=== PATIENT | female | born 1950 | race Caucasian/White ===

== ENCOUNTER → 2017-01-18 | Outpatient (CLI) | payer MEDICARE, OTHER | LOC: HEART 5 09:36 | DX: J44.9 Chronic obstructive pulmonary disease, unspecified (principal) | CPT/HCPCS: 94010 ==

== ENCOUNTER → 2017-02-01 | Outpatient (CLI) | payer MEDICARE, OTHER | LOC: CT 13:30 | DX: F17.210 Nicotine dependence, cigarettes, uncomplicated (principal); J44.9 Chronic obstructive pulmonary disease, unspecified; R91.8 Other nonspecific abnormal finding of lung field | CPT/HCPCS: G0297 ==

== ENCOUNTER 2020-11-13 11:01 | Inpatient (IN) | payer MEDICARE, OTHER ==
[~2020-11-13] VITALS: Ht 149.9 cm; Wt 42.0 kg
[~2020-11-13 11:01] MED LIST: ADVAIR 250-501 EACH INH; ELAVIL 50 MG TA50 MG PO; FENOFIBRATE160 MG PO; GABAPENTIN300 MG PO; HYDROCODON-ACE1 EAC4 PO; INVANZ 1 GM VIAL1 GM IV; LORATADINE10 MG PO; NORCO 5-325 TA1 EACH PO; OXYBUTYNIN CHLOR5 MG PO; PROTONIX40 MG PO; Voltaren Gel 1% TOP; ZANTAC150 MG PO
[2020-11-13 11:58] LABS: HEMOGLOBIN 14.9 gm/dl (12.3-15.3); RED BLOOD COUNT 4.75 M/UL (4.00-5.10); WHITE BLOOD COUNT 25.6 K/UL (4.5-11.0)
[2020-11-13 12:35] LABS: BUN/CREATININE RATIO 15 (0-10)
[2020-11-13] MEDS ORDERED: FAMOTIDINE40 MG PO (18:46)
[2020-11-13] MEDS ORDERED: FUROSEMIDE20 MG PO (18:49)
[2020-11-13] MEDS ORDERED: LIORESAL TAB 1010 MG PO (18:50)
[2020-11-14 00:26] LABS: HEMOGLOBIN 11.4 gm/dl (12.3-15.3); RED BLOOD COUNT 3.69 M/UL (4.00-5.10)
[2020-11-14 00:45] LABS: BUN/CREATININE RATIO 16 (0-10)
--- NOTE | 2020-11-14 09:10 | NUR ---
0840 PT INSISTED THAT SHE LEAVE THE HOSPITAL AND GO HOME. PT DAUGHTER AND MYSELF INFORMED PT THAT SHE HAD PNEUMONIA, WAS NOT WELL, AND WOULD MOST LIKELY HAVE TO COME BACK AND BE READMITTED IF SHE SIGNED OUT. SHE STILL INSISTED THAT SHE GO. DR AYERS WAS CALLED AND TOLD ABOUT PATIENTS WISHES. DR AYERS STATED THAT PT HAD A MASS THAT NEEDED TO A BIOPSY AND PNEUMONIA. DR AYERS TOLD ME IT WAS OK TO TELL THIS TO THE PATIENT. I DID INFORM THE PATIENT OF THESE FINDINGS WHILE DAUGHTER WAS PRESENT IN THE ROOM. PATIENT WAS A/0 X3. ANSWERED ALL QUESTIONS APPROPRIATELY AND WAS AWARE SHE THAT WAS SIGNING OUT AGAINST MEDICAL ADVICE. PT SIGNED PAPERS AND DAUGHTER SAID SHE WAS DRIVING HER HOME AND WOULD BE STAYING WITH HER AT HOME.
[2020-11-14] MEDS ORDERED: ALENDRONATE SOD70 MG PO (18:51)
[2020-11-15] MEDS ORDERED: LEVOFLOXACIN500 MG PO (16:21)
[2020-11-15] MEDS ORDERED: PREDNISONE 5 MG5 MG PO (16:33)
[2020-11-16] MEDS ORDERED: VENTOLIN HFA 66.7 GM INH (10:29)
[2020-11-16] MEDS ORDERED: HYDROXYZINE HCL10 MG PO (10:31)
[2020-11-16] MEDS ORDERED: MIRAPEX0.25 MG PO (10:32)
== END 2020-11-14 08:52 | disposition left against medical advice (07) | DRG 871 ==
LOC: ER1 11:01 → CDU 14:04 → PROG CARE 21:51
PROVIDERS: Emergency Medicine; Physician Assistant Medical; ADMIT Internal Medicine
DX: A41.9 Sepsis, unspecified organism (principal); J18.9 Pneumonia, unspecified organism; J96.01 Acute respiratory failure with hypoxia; J44.0 Chronic obstructive pulmonary disease with (acute) lower respiratory infection; N39.0 Urinary tract infection, site not specified; R65.20 Severe sepsis without septic shock; R79.9 Abnormal finding of blood chemistry, unspecified; F17.210 Nicotine dependence, cigarettes, uncomplicated; Z20.828 Contact with and (suspected) exposure to other viral communicable diseases; R91.8 Other nonspecific abnormal finding of lung field; I50.9 Heart failure, unspecified
CPT/HCPCS: 36600; 71045; 80048; 80053; 81001; 82550; 82553; 82803; 83605; 83735; 83874; 83880; 84484; 85025; 85027; 87040; 87086; 93005; 94640; 94664; 94760; 96365; 96375; 99285; J0456; J0696; J7030; J7050; Q9967; U0002

== ENCOUNTER 2020-11-16 11:45 | Inpatient (IN) | payer MEDICARE, OTHER ==
[~2020-11-16] VITALS: Ht 157.5 cm; Wt 38.1 kg
[~2020-11-16 11:45] MED LIST changes: +ALENDRONATE SOD70 MG PO; +FAMOTIDINE40 MG PO; +FUROSEMIDE20 MG PO; +HYDROXYZINE HCL10 MG PO; +LEVOFLOXACIN500 MG PO; +LIORESAL TAB 1010 MG PO; +MIRAPEX0.25 MG PO; +PREDNISONE 5 MG5 MG PO; +VENTOLIN HFA 66.7 GM INH
[2020-11-16 13:53] LABS: HEMOGLOBIN 12.9 gm/dl (12.3-15.3)
[2020-11-16 13:59] LABS: RED BLOOD COUNT 4.25 M/UL (4.00-5.10)
[2020-11-16 14:20] LABS: BUN/CREATININE RATIO 19 (0-10)
[2020-11-16] MEDS ORDERED: LASIX20 MG PO (16:20)
[2020-11-16] MEDS ORDERED: MUCINEX600 MG PO (16:34)
[2020-11-16] MEDS ORDERED: NEURONTIN800 MG PO (16:34)
[2020-11-16] MEDS ORDERED: VOLTAREN100 GM TP (16:35)
[2020-11-16] MEDS ORDERED: VITAMIN D350 MCG PO (18:55)
[2020-11-17 04:17] LABS: RED BLOOD COUNT 3.95 M/UL (4.00-5.10); WHITE BLOOD COUNT 19.7 K/UL (4.5-11.0)
[2020-11-17 08:35] LABS: BUN/CREATININE RATIO 16 (0-10)
[2020-11-18 04:23] LABS: HEMOGLOBIN 11.5 gm/dl (12.3-15.3); RED BLOOD COUNT 3.82 M/UL (4.00-5.10); WHITE BLOOD COUNT 16.6 K/UL (4.5-11.0)
[2020-11-18 04:43] LABS: BUN/CREATININE RATIO 11 (0-10)
[2020-11-19 06:20] LABS: HEMOGLOBIN 11.3 gm/dl (12.3-15.3); RED BLOOD COUNT 3.68 M/UL (4.00-5.10); WHITE BLOOD COUNT 15.1 K/UL (4.5-11.0)
[2020-11-19 06:21] LABS: BUN/CREATININE RATIO 14 (0-10)
[2020-11-20 03:22] LABS: HEMOGLOBIN 11.3 gm/dl (12.3-15.3); RED BLOOD COUNT 3.64 M/UL (4.00-5.10); WHITE BLOOD COUNT 14.5 K/UL (4.5-11.0)
[2020-11-20 04:11] LABS: BUN/CREATININE RATIO 15 (0-10)
--- NOTE | 2020-11-21 11:11 | NUR ---
20G X 8CM MIDLINE PLACED IN THE RIGHT BASILIC VEIN. ASPIRATES AND FLUSHES WELL. NO COMPLICATIONS.
[2020-11-21] MEDS ORDERED: ZYVOX600 MG PO (11:44)
[2020-11-21] MEDS ORDERED: INVANZ 1 GM VIAL1 GM IV (13:12)
[2020-11-22 16:11] LABS: ORGANISM ID Not indicated. (.); SPECIMEN SOURCE Urine (.); STREPTOCOCCUS PNEUMONIAE AG Negative (Negative)
== END 2020-11-21 17:40 | disposition home health service (06) | DRG 871 ==
LOC: ER1 11:45 → ZEROF 15:29 → M/S 15:29
PROVIDERS: Family Medicine; Internal Medicine; Internal Medicine Pulmonary Disease; Physician Assistant Medical; ADMIT Internal Medicine
PROC: 05HB33Z Insertion of Infusion Device into Right Basilic Vein, Percutaneous Approach (ICD-10-PCS; principal; 2020-11-21)
DX: A41.9 Sepsis, unspecified organism (principal); J18.9 Pneumonia, unspecified organism; J96.21 Acute and chronic respiratory failure with hypoxia; J85.0 Gangrene and necrosis of lung; J44.0 Chronic obstructive pulmonary disease with (acute) lower respiratory infection; N30.00 Acute cystitis without hematuria; R22.0 Localized swelling, mass and lump, head; Z20.822 Contact with and (suspected) exposure to COVID-19; F17.210 Nicotine dependence, cigarettes, uncomplicated; R00.0 Tachycardia, unspecified; R19.7 Diarrhea, unspecified; I11.0 Hypertensive heart disease with heart failure; I50.9 Heart failure, unspecified
CPT/HCPCS: ECHO; 36415; 71045; 80048; 80053; 82550; 82553; 83605; 83615; 83735; 83874; 83880; 84484; 85025; 85027; 86140; 87040; 87081; 87278; 87899; 90471; 93005; 93306; 94640; 94664; 94760; 96365; 96367; 99285; C1751; J0456; J0696; J1335; J2020; J2543; J3370; J7030; U0002

== ENCOUNTER 2020-11-28 13:58 | Emergency (ER) | payer MEDICARE, OTHER ==
[~2020-11-28 13:58] MED LIST changes: +LASIX20 MG PO; +MUCINEX600 MG PO; +NEURONTIN800 MG PO; +VITAMIN D350 MCG PO; +VOLTAREN100 GM TP; +ZYVOX600 MG PO
--- NOTE | 2020-11-28 16:57 | NUR ---
PT CAME TO THE ED WITH A PICC LINE THAT WAS PARTIALLY PULLED OUT. PICC DC'D BY ED RN. NEW PICC LINE INSERTED IN THE RIGHT BASILIC VEIN, CUT TO 26 CM. ASPIRATES AND FLUSHES WELL. US GUIDANCE USED FOR VENOUS ACCESS. XRAY OBTAINED TO CONFIRM PICC TIP IN THE SVC.
== END 2020-11-28 16:02 | disposition home or self-care (01) ==
LOC: ER1 13:58
DX: Z45.2 Encounter for adjustment and management of vascular access device (principal); J18.9 Pneumonia, unspecified organism; F17.200 Nicotine dependence, unspecified, uncomplicated
CPT/HCPCS: 36556; 71045; 99283; C1751

== ENCOUNTER → 2020-12-06 | Outpatient (CLI) | payer MEDICARE, OTHER ==
[~2020-12-06] MED LIST changes: +HYDROCODON-ACE1 EAC1 PO; +HYDROCODON-ACE1 EAC2 PO; +LOVENOX40 MG/0.4 SQ; +NEXIUM40 MG PO; +SPIRIVA HANDIH18 MCG INH
== END ==
LOC: EXRD 11:17
DX: Z09 Encounter for follow-up examination after completed treatment for conditions other than malignant neoplasm (principal); Z87.01 Personal history of pneumonia (recurrent); R91.8 Other nonspecific abnormal finding of lung field
CPT/HCPCS: 71046

== ENCOUNTER 2020-12-08 16:06 | Inpatient (IN) | payer MEDICARE, OTHER ==
[~2020-12-08] VITALS: Ht 139.7 cm; Wt 37.6 kg
[~2020-12-08 16:06] MED LIST changes: -HYDROCODON-ACE1 EAC1 PO; -HYDROCODON-ACE1 EAC2 PO; -LOVENOX40 MG/0.4 SQ; -NEXIUM40 MG PO; -SPIRIVA HANDIH18 MCG INH
[2020-12-08 17:16] LABS: RED BLOOD COUNT 3.64 M/UL (4.00-5.10); WHITE BLOOD COUNT 10.4 K/UL (4.5-11.0)
[2020-12-08 17:35] LABS: BUN/CREATININE RATIO 14 (0-10)
[2020-12-08] MEDS ORDERED: NEXIUM40 MG PO (21:43)
[2020-12-08] MEDS ORDERED: ELAVIL 50 MG TA50 MG PO (21:43)
[2020-12-09 04:26] LABS: RED BLOOD COUNT 3.65 M/UL (4.00-5.10); WHITE BLOOD COUNT 9.7 K/UL (4.5-11.0)
[2020-12-09 05:07] LABS: BUN/CREATININE RATIO 13 (0-10)
[2020-12-09 23:36] LABS: HEMOGLOBIN 12.1 gm/dl (12.3-15.3); RED BLOOD COUNT 3.96 M/UL (4.00-5.10)
[2020-12-09 23:42] LABS: WHITE BLOOD COUNT 15.1 K/UL (4.5-11.0)
[2020-12-09 23:59] LABS: BUN/CREATININE RATIO 21 (0-10)
[2020-12-10 03:39] LABS: HEMOGLOBIN 10.8 gm/dl (12.3-15.3); RED BLOOD COUNT 3.57 M/UL (4.00-5.10)
[2020-12-10 03:56] LABS: BUN/CREATININE RATIO 22 (0-10)
[2020-12-11 03:13] LABS: HEMOGLOBIN 9.4 gm/dl (12.3-15.3)
[2020-12-11 03:16] LABS: RED BLOOD COUNT 3.06 M/UL (4.00-5.10); WHITE BLOOD COUNT 12.1 K/UL (4.5-11.0)
[2020-12-11 03:43] LABS: BUN/CREATININE RATIO 13 (0-10)
[2020-12-12 08:40] LABS: HEMOGLOBIN 10.9 gm/dl (12.3-15.3)
[2020-12-12 08:42] LABS: RED BLOOD COUNT 3.56 M/UL (4.00-5.10); WHITE BLOOD COUNT 8.1 K/UL (4.5-11.0)
[2020-12-12 09:04] LABS: BUN/CREATININE RATIO 12 (0-10)
[2020-12-12] MEDS ORDERED: LOVENOX40 MG/0.4 SQ (10:05)
[2020-12-12] MEDS ORDERED: HYDROCODON-ACE1 EAC1 PO (10:10)
[2020-12-12] MEDS ORDERED: SPIRIVA HANDIH18 MCG INH (10:17)
[2020-12-12] MEDS ORDERED: HYDROCODON-ACE1 EAC2 PO (11:06)
== END 2020-12-12 14:39 | disposition home or self-care (01) | DRG 481 ==
LOC: ER1 16:06 → MED SURG 4 17:59 → ZEROF 17:59 → MED SURG 4 12-09 08:14
PROVIDERS: Orthopaedic Surgery; Preventive Medicine Occupational Medicine; ADMIT Internal Medicine
PROC: 0QS606Z Reposition Right Upper Femur with Intramedullary Internal Fixation Device, Open Approach (ICD-10-PCS; principal; 2020-12-09 18:00)
DX: S72.141A Displaced intertrochanteric fracture of right femur, initial encounter for closed fracture (principal); J96.10 Chronic respiratory failure, unspecified whether with hypoxia or hypercapnia; W01.0XXA Fall on same level from slipping, tripping and stumbling without subsequent striking against object, initial encounter; Y92.9 Unspecified place or not applicable; Z99.81 Dependence on supplemental oxygen; F17.210 Nicotine dependence, cigarettes, uncomplicated; J44.9 Chronic obstructive pulmonary disease, unspecified; G62.9 Polyneuropathy, unspecified; G89.29 Other chronic pain; M54.9 Dorsalgia, unspecified; E55.9 Vitamin D deficiency, unspecified; G25.81 Restless legs syndrome; Z20.822 Contact with and (suspected) exposure to COVID-19; M81.0 Age-related osteoporosis without current pathological fracture; D72.829 Elevated white blood cell count, unspecified; R91.8 Other nonspecific abnormal finding of lung field; Z79.899 Other long term (current) drug therapy
CPT/HCPCS: 36415; 71045; 73502; 73522; 73552; 76000; 80048; 80053; 85025; 85027; 86850; 86900; 86901; 90471; 93005; 94640; 94660; 94664; 94760; 96372; 96374; 96375; 96376; 97110-GP-CQ; 97116-GP-CQ; 97162; 97165; 99284; C1713; J0690; J1100; J1170; J1650; J2001; J2270; J2405; J2704; J2710; J3010; J7030; J7120; U0002

== ENCOUNTER → 2021-01-13 | Outpatient (CLI) | payer MEDICARE, OTHER ==
[~2021-01-13] MED LIST changes: +HYDROCODON-ACE1 EAC1 PO; +HYDROCODON-ACE1 EAC2 PO; +LOVENOX40 MG/0.4 SQ; +NEXIUM40 MG PO; +SPIRIVA HANDIH18 MCG INH
== END ==
LOC: CT 12-22 11:30
DX: R91.8 Other nonspecific abnormal finding of lung field (principal); R59.0 Localized enlarged lymph nodes; J92.9 Pleural plaque without asbestos
CPT/HCPCS: 36600; 71260; 82803; Q9967

== ENCOUNTER → 2021-04-27 | Outpatient (CLI) | payer MEDICARE, OTHER | LOC: RT 10:20 | DX: Z87.891 Personal history of nicotine dependence (principal); J30.9 Allergic rhinitis, unspecified; M19.90 Unspecified osteoarthritis, unspecified site; R25.2 Cramp and spasm; H26.9 Unspecified cataract; Z87.09 Personal history of other diseases of the respiratory system; I83.012 Varicose veins of right lower extremity with ulcer of calf; I83.022 Varicose veins of left lower extremity with ulcer of calf; I87.2 Venous insufficiency (chronic) (peripheral); L97.822 Non-pressure chronic ulcer of other part of left lower leg with fat layer exposed; L97.811 Non-pressure chronic ulcer of other part of right lower leg limited to breakdown of skin; J44.9 Chronic obstructive pulmonary disease, unspecified; I10 Essential (primary) hypertension; M15.9 Polyosteoarthritis, unspecified; M06.9 Rheumatoid arthritis, unspecified; L03.115 Cellulitis of right lower limb; L03.116 Cellulitis of left lower limb; Z79.899 Other long term (current) drug therapy; F17.210 Nicotine dependence, cigarettes, uncomplicated; Z79.2 Long term (current) use of antibiotics | CPT/HCPCS: 36600; 82803 ==

== ENCOUNTER → 2021-04-27 | Outpatient (CLI) | payer MEDICARE, OTHER | LOC: WCC 08:50 | DX: I83.012 Varicose veins of right lower extremity with ulcer of calf (principal); I83.022 Varicose veins of left lower extremity with ulcer of calf; I87.2 Venous insufficiency (chronic) (peripheral); L97.822 Non-pressure chronic ulcer of other part of left lower leg with fat layer exposed; L97.811 Non-pressure chronic ulcer of other part of right lower leg limited to breakdown of skin; J44.9 Chronic obstructive pulmonary disease, unspecified; I10 Essential (primary) hypertension; M15.9 Polyosteoarthritis, unspecified; M06.9 Rheumatoid arthritis, unspecified; L03.115 Cellulitis of right lower limb; L03.116 Cellulitis of left lower limb; F17.210 Nicotine dependence, cigarettes, uncomplicated; Z79.2 Long term (current) use of antibiotics; Z79.899 Other long term (current) drug therapy | CPT/HCPCS: G0463 ==

== ENCOUNTER → 2021-05-19 | Outpatient (CLI) | payer MEDICARE, OTHER ==
[~2021-05-19] MED LIST changes: +AMLODIPINE BESYL5 MG PO; +BACTROBAN OINT22 GM TOP; +FOSAMAX70 MG PO; +MEDROL DOSEPAK 24 MG PO; +PILOCARPINE HCL5 MG PO; +spiriva; +symbicort
== END ==
LOC: KOH-I 05-16 09:00
DX: J92.9 Pleural plaque without asbestos (principal)
CPT/HCPCS: 71250

== ENCOUNTER → 2021-05-26 | Outpatient (CLI) | payer MEDICARE, OTHER | LOC: WCC 08:20 | DX: I83.022 Varicose veins of left lower extremity with ulcer of calf (principal); I83.012 Varicose veins of right lower extremity with ulcer of calf; I87.2 Venous insufficiency (chronic) (peripheral); L97.822 Non-pressure chronic ulcer of other part of left lower leg with fat layer exposed; J44.9 Chronic obstructive pulmonary disease, unspecified; I10 Essential (primary) hypertension; M15.9 Polyosteoarthritis, unspecified; F17.210 Nicotine dependence, cigarettes, uncomplicated; L03.115 Cellulitis of right lower limb; L03.116 Cellulitis of left lower limb; Z79.2 Long term (current) use of antibiotics; Z79.899 Other long term (current) drug therapy ==

== ENCOUNTER → 2021-06-02 | Outpatient (CLI) | payer MEDICARE, OTHER | LOC: WCC 08:56 | PROC: 0JBP0ZZ Excision of Left Lower Leg Subcutaneous Tissue and Fascia, Open Approach (ICD-10-PCS; principal; 2021-06-02) | PROC: 0JBN0ZZ Excision of Right Lower Leg Subcutaneous Tissue and Fascia, Open Approach (ICD-10-PCS; 2021-06-02) | DX: I83.012 Varicose veins of right lower extremity with ulcer of calf (principal); I83.022 Varicose veins of left lower extremity with ulcer of calf; L97.212 Non-pressure chronic ulcer of right calf with fat layer exposed; L97.222 Non-pressure chronic ulcer of left calf with fat layer exposed; I96 Gangrene, not elsewhere classified; J44.9 Chronic obstructive pulmonary disease, unspecified; I10 Essential (primary) hypertension; L03.116 Cellulitis of left lower limb; L03.115 Cellulitis of right lower limb; M13.0 Polyarthritis, unspecified; H26.9 Unspecified cataract; G62.9 Polyneuropathy, unspecified; M06.9 Rheumatoid arthritis, unspecified; Z79.899 Other long term (current) drug therapy ==

== ENCOUNTER → 2021-06-16 | Outpatient (CLI) | payer MEDICARE, OTHER | LOC: WCC 08:18 | DX: I83.012 Varicose veins of right lower extremity with ulcer of calf (principal); I83.022 Varicose veins of left lower extremity with ulcer of calf; L97.822 Non-pressure chronic ulcer of other part of left lower leg with fat layer exposed; L97.812 Non-pressure chronic ulcer of other part of right lower leg with fat layer exposed; J44.9 Chronic obstructive pulmonary disease, unspecified; I10 Essential (primary) hypertension; L03.115 Cellulitis of right lower limb; L03.116 Cellulitis of left lower limb; M15.9 Polyosteoarthritis, unspecified; F17.210 Nicotine dependence, cigarettes, uncomplicated; Z79.899 Other long term (current) drug therapy ==

== ENCOUNTER → 2021-06-23 | Outpatient (CLI) | payer MEDICARE, OTHER | LOC: WCC 08:56 | DX: I83.012 Varicose veins of right lower extremity with ulcer of calf (principal); I83.022 Varicose veins of left lower extremity with ulcer of calf; L97.822 Non-pressure chronic ulcer of other part of left lower leg with fat layer exposed; L97.812 Non-pressure chronic ulcer of other part of right lower leg with fat layer exposed; J44.9 Chronic obstructive pulmonary disease, unspecified; I10 Essential (primary) hypertension; M15.9 Polyosteoarthritis, unspecified; L03.115 Cellulitis of right lower limb; L03.116 Cellulitis of left lower limb; F17.210 Nicotine dependence, cigarettes, uncomplicated; Z79.899 Other long term (current) drug therapy ==

== ENCOUNTER 2021-07-14 22:02 | Inpatient (IN) | payer MEDICARE, OTHER ==
[~2021-07-14] VITALS: Ht 165.1 cm; Wt 45.0 kg
[~2021-07-14 22:02] MED LIST changes: -AMLODIPINE BESYL5 MG PO; -BACTROBAN OINT22 GM TOP; -FOSAMAX70 MG PO; -LIORESAL TAB 1010 MG PO; -MEDROL DOSEPAK 24 MG PO; -PILOCARPINE HCL5 MG PO; -spiriva; -symbicort
[2021-07-14 22:41] LABS: HEMOGLOBIN 14.4 gm/dl (12.3-15.3); RED BLOOD COUNT 4.4 M/UL (4.00-5.10); WHITE BLOOD COUNT 26.7 K/UL (4.5-11.0)
[2021-07-14 23:02] LABS: BUN/CREATININE RATIO 12 (0-10)
[2021-07-15 08:31] LABS: HEMOGLOBIN 12.9 gm/dl (12.3-15.3); RED BLOOD COUNT 4.02 M/UL (4.00-5.10); WHITE BLOOD COUNT 22.6 K/UL (4.5-11.0)
[2021-07-15 08:47] LABS: BUN/CREATININE RATIO 16 (0-10)
[2021-07-15] MEDS ORDERED: MIRAPEX0.25 MG PO (16:04)
[2021-07-15] MEDS ORDERED: BACTROBAN OINT22 GM TOP (16:04)
[2021-07-15] MEDS ORDERED: PILOCARPINE HCL5 MG PO (16:07)
[2021-07-15] MEDS ORDERED: FOSAMAX70 MG PO (16:08)
[2021-07-15] MEDS ORDERED: LIORESAL TAB 1010 MG PO (18:50)
[2021-07-15 20:35] LABS: ACINETOBACTER BAUMANNII Not Detected (Negative); CANDIDA ALBICANS Not Detected (Negative); CANDIDA KRUSEI Not Detected (Negative); CANDIDA TROPICALIS Not Detected (Negative); ENTEROCOCCUS Not Detected (Negative); ESCHERICHIA COLI Not Detected (Negative); HAEMOPHILUS INFLUENZAE Not Detected (Negative); KLEBSIELLA OXYTOCA Not Detected (Negative); KLEBSIELLA PNEUMONIAE Not Detected (Negative); KPC-CARBAPENEM-RESISTANCE GENE Not Detected (Negative); PROTEUS Not Detected (Negative); PSEUDOMONAS AERUGINOSA Not Detected (Negative); SERRATIA MARCESANS Not Detected (Negative); STAPHYLOCOCCUS AUREUS Not Detected (Negative); STREP AGALACTIAE (GROUP B) Not Detected (Negative); STREP PYOGENES (GROUP A) Not Detected (Negative); STREPTOCOCCUS Not Detected (Negative); mecA (METHICILLIN RESIST GENE DETECTED (Negative); vanA/B (VANCOMYCIN RESIST GENE Not Detected (Negative)
[2021-07-15 20:36] LABS: STAPHYLOCOCCUS DETECTED (Negative)
[2021-07-16 05:09] LABS: HEMOGLOBIN 12.8 gm/dl (12.3-15.3); RED BLOOD COUNT 4.05 M/UL (4.00-5.10)
[2021-07-16 05:29] LABS: BUN/CREATININE RATIO 16 (0-10)
[2021-07-17 05:48] LABS: HEMOGLOBIN 12.6 gm/dl (12.3-15.3); RED BLOOD COUNT 3.98 M/UL (4.00-5.10)
[2021-07-17 05:50] LABS: WHITE BLOOD COUNT 15.8 K/UL (4.5-11.0)
[2021-07-17 06:19] LABS: BUN/CREATININE RATIO 32 (0-10)
[2021-07-17] MEDS ORDERED: HYDROCODON-ACE1 EAC2 PO (11:36)
[2021-07-17] MEDS ORDERED: VITAMIN D350 MCG PO (11:42)
[2021-07-17] MEDS ORDERED: MUCINEX600 MG PO (12:21)
[2021-07-17] MEDS ORDERED: ELAVIL 50 MG TA50 MG PO (21:43)
[2021-07-18 05:40] LABS: HEMOGLOBIN 14.2 gm/dl (12.3-15.3); WHITE BLOOD COUNT 15.6 K/UL (4.5-11.0)
[2021-07-18 05:41] LABS: RED BLOOD COUNT 4.51 M/UL (4.00-5.10)
[2021-07-18 06:09] LABS: BUN/CREATININE RATIO 23 (0-10)
[2021-07-18 20:11] LABS: ORGANISM ID Not indicated. (.); SPECIMEN SOURCE Urine (.); STREPTOCOCCUS PNEUMONIAE AG Negative (Negative)
--- NOTE | 2021-07-19 02:41 | NUR ---
AFTER STAT EKG, NOTIFIED HOUSE AND EKG WAS SENT TO AT 8.31.21 @ 0816, REPLIED BACK OK. PT HR STILL ELEVATED AT 09..21 0000 AT 130'S 0.5 ATIVAN DUE WAS ADMIN. AT 0108 [facility] NOTIFIED OF CURRENT STATUS OF TACHYCADIA IN 130'S, NO NEW ORDERS GIVEN, WILL CONTINUE TO MONITOR PT.
--- NOTE | 2021-07-19 02:49 | NUR ---
DURING FIRST MED PASS, PT BLOOD GLUCOSE WAS 80 AT 2012. PT WAS FEED A PACK OF JIF PEANUT BUTTER AND AN ORANGE JUICE, RECHECKED BS AT 8 WAS AT 124. RECHECKED BS AT 9.1.21 0112 WAS 101, PT WAS GIVEN A COUPLE SIPS OF 7UP
--- NOTE | 2021-07-19 05:28 | NUR ---
CHECKED ON PT, PT IS LAYING IN BED ASLEEP, NO SIGNS OF DISTRESS AT THIS TIME, HR 114, 02 96%. WILL CONTINUE TO MONITOR PT.
[2021-07-19 06:18] LABS: HEMOGLOBIN 14.7 gm/dl (12.3-15.3); RED BLOOD COUNT 4.64 M/UL (4.00-5.10); WHITE BLOOD COUNT 14.4 K/UL (4.5-11.0)
--- NOTE | 2021-07-19 06:32 | NUR ---
PT IS LAYING IN BED AWAKE, NO SIGNS OF DISTRESS, HR 95, 02 96. BED ALARM IS ON AND BED IS IN LOWEST POSITION, CALL LIGHT WITHIN REACH. WILL CONTINUE TO MONITOR PT.
[2021-07-19 06:54] LABS: BUN/CREATININE RATIO 33 (0-10)
[2021-07-20 07:36] LABS: HEMOGLOBIN 15.6 gm/dl (12.3-15.3); RED BLOOD COUNT 4.91 M/UL (4.00-5.10); WHITE BLOOD COUNT 16.1 K/UL (4.5-11.0)
[2021-07-20 08:13] LABS: BUN/CREATININE RATIO 65 (0-10)
[2021-07-20] MEDS ORDERED: AMLODIPINE BESYL5 MG PO (12:58)
[2021-07-21 04:31] LABS: HEMOGLOBIN 14.8 gm/dl (12.3-15.3); RED BLOOD COUNT 4.59 M/UL (4.00-5.10)
[2021-07-21 04:37] LABS: WHITE BLOOD COUNT 23.2 K/UL (4.5-11.0)
[2021-07-21 04:50] LABS: BUN/CREATININE RATIO 52 (0-10)
[2021-07-21] MEDS ORDERED: symbicort (09:38)
[2021-07-21] MEDS ORDERED: spiriva (09:38)
[2021-07-21] MEDS ORDERED: LEVOFLOXACIN500 MG PO (09:42)
[2021-07-21] MEDS ORDERED: MEDROL DOSEPAK 24 MG PO (09:42)
== END 2021-07-21 13:36 | disposition home health service (06) | DRG 871 ==
LOC: ER1 22:02 → MED SURG 4 07-15 01:38 → CDU 07-15 01:38 → CCU 07-15 01:38 → MED SURG 4 07-18 09:31
PROVIDERS: Emergency Medicine; Internal Medicine; Internal Medicine Pulmonary Disease; ADMIT Internal Medicine
PROC: 5A1945Z Respiratory Ventilation, 24-96 Consecutive Hours (ICD-10-PCS; principal; 2021-07-15)
PROC: 0BH17EZ Insertion of Endotracheal Airway into Trachea, Via Natural or Artificial Opening (ICD-10-PCS; 2021-07-15)
PROC: 5A09457 Assistance with Respiratory Ventilation, 24-96 Consecutive Hours, Continuous Positive Airway Pressure (ICD-10-PCS; 2021-07-17)
DX: A41.02 Sepsis due to Methicillin resistant Staphylococcus aureus (principal); J18.9 Pneumonia, unspecified organism; G93.41 Metabolic encephalopathy; J96.21 Acute and chronic respiratory failure with hypoxia; J96.22 Acute and chronic respiratory failure with hypercapnia; E43 Unspecified severe protein-calorie malnutrition; J44.1 Chronic obstructive pulmonary disease with (acute) exacerbation; N17.9 Acute kidney failure, unspecified; Z68.1 Body mass index [BMI] 19.9 or less, adult; E78.5 Hyperlipidemia, unspecified; K21.9 Gastro-esophageal reflux disease without esophagitis; R73.9 Hyperglycemia, unspecified; Z20.822 Contact with and (suspected) exposure to COVID-19; G25.81 Restless legs syndrome; F17.210 Nicotine dependence, cigarettes, uncomplicated; E55.9 Vitamin D deficiency, unspecified; G89.4 Chronic pain syndrome; M81.0 Age-related osteoporosis without current pathological fracture; R00.1 Bradycardia, unspecified; F32.9 Major depressive disorder, single episode, unspecified; R13.10 Dysphagia, unspecified; F41.9 Anxiety disorder, unspecified; R65.20 Severe sepsis without septic shock; Z90.710 Acquired absence of both cervix and uterus; Z98.890 Other specified postprocedural states; Z79.899 Other long term (current) drug therapy; Z79.01 Long term (current) use of anticoagulants
CPT/HCPCS: ECHO; 31500; 36415; 36600; 51702; 70450; 71045; 80048; 80053; 80202; 80307; 81001; 82728; 82803; 82962; 83036; 83605; 83615; 83735; 83880; 84100; 84132; 85025; 85027; 85379; 85384; 85610; 85730; 86140; 87040; 87070; 87077; 87081; 87086; 87150; 87186; 87205; 87278; 87899; 93005; 93306; 94002; 94003; 94640; 94660; 94664; 94760; 97110-GP-CQ; 97116-GP-CQ; 97161; 97166; 99285; C9113; J0360; J0456; J0692; J1650; J2060; J2704; J2920; J3010; J3370; J7030; J7070; U0002

== ENCOUNTER → 2021-12-01 | Outpatient (CLI) | payer MEDICARE, OTHER ==
[~2021-12-01] MED LIST changes: +AMLODIPINE BESYL5 MG PO; +BACTROBAN OINT22 GM TOP; +FOSAMAX70 MG PO; +LIORESAL TAB 1010 MG PO; +MEDROL DOSEPAK 24 MG PO; +PILOCARPINE HCL5 MG PO; +spiriva; +symbicort
== END ==
LOC: CT 12:36
DX: J92.9 Pleural plaque without asbestos (principal); J43.9 Emphysema, unspecified; J84.9 Interstitial pulmonary disease, unspecified
CPT/HCPCS: 36415; 71260; 82565; Q9967

== ENCOUNTER 2022-01-16 00:23 | Observation (INO) | payer MEDICARE, OTHER ==
[2022-01-16 01:04] LABS: HEMOGLOBIN 13.4 gm/dl (12.3-15.3); RED BLOOD COUNT 4.29 M/UL (4.00-5.10); WHITE BLOOD COUNT 11.2 K/UL (4.5-11.0)
[2022-01-16 01:27] LABS: BUN/CREATININE RATIO 17 (0-10)
== END 2022-01-16 10:00 | disposition left against medical advice (07) ==
LOC: ER1 00:23 → CDU 02:50
PROVIDERS: Family Medicine; ADMIT Internal Medicine
DX: J96.21 Acute and chronic respiratory failure with hypoxia (principal); Z20.822 Contact with and (suspected) exposure to COVID-19; J44.1 Chronic obstructive pulmonary disease with (acute) exacerbation; G93.41 Metabolic encephalopathy; K21.9 Gastro-esophageal reflux disease without esophagitis; G25.81 Restless legs syndrome; M81.0 Age-related osteoporosis without current pathological fracture; Z53.29 Procedure and treatment not carried out because of patient's decision for other reasons; Z79.899 Other long term (current) drug therapy; Z99.81 Dependence on supplemental oxygen
CPT/HCPCS: 36600; 70450; 71045; 80053; 80307; 81001; 82140; 82550; 82553; 82803; 83605; 83690; 83735; 84484; 85025; 85379; 85610; 87086; 93005; 94640; 94664; 96374; 96375; 99285; G0378; G0480; J2310; J2930; U0002

== ENCOUNTER 2022-04-19 14:01 | Emergency (ER) | payer MEDICARE, OTHER ==
[2022-04-19 15:15] LABS: HEMOGLOBIN 14.1 gm/dl (12.3-15.3); RED BLOOD COUNT 4.5 M/UL (4.00-5.10); WHITE BLOOD COUNT 12.1 K/UL (4.5-11.0)
[2022-04-19 15:36] LABS: BUN/CREATININE RATIO 15 (0-10)
== END 2022-04-19 19:00 | disposition home or self-care (01) ==
LOC: ER1 14:01
PROVIDERS: Emergency Medicine
DX: S22.42XA Multiple fractures of ribs, left side, initial encounter for closed fracture (principal); J44.9 Chronic obstructive pulmonary disease, unspecified; F17.200 Nicotine dependence, unspecified, uncomplicated; W01.10XA Fall on same level from slipping, tripping and stumbling with subsequent striking against unspecified object, initial encounter
CPT/HCPCS: 71111; 72131; 80053; 85025; 99284; Q9967